=== PATIENT | male | born 1985 | race Caucasian/White ===

== ENCOUNTER 2020-06-29 13:42 | Emergency (ER) | payer OTHER ==
[~2020-06-29] VITALS: Ht 175.3 cm; Wt 79.5 kg
[2020-06-29 14:42] VITALS: BP 115/78
--- NOTE | 2020-06-29 15:13 | RAD ---
RIBS LEFT AND PA CHEST History: Reason: knee in ribs / Spl. Instructions: / History: Pain Technique: PA view the chest and 3 views of the left ribs. Comparison: None. Findings: No consolidation or pleural effusion. No pneumothorax. Normal heart size. No displaced rib fractures. Impression: 1. No acute cardiopulmonary process. No displaced rib fractures. Electronically signed by: Vince Anthony DO (06/29/2020 3:10 PM) [facility]
--- NOTE | 2020-06-29 15:19 | PHYS DOC ---
Adult General Chief Complaint Chief Complaint: RIB PAIN HPI HPI Patient is a 35 year old male who presents with left-sided lower/anterior rib pains after being kneed to his ribs during his hockey practice today. Patient states that approximately 1230 after hockey practice ended in his traditional 4 teammates on their birthday to have all their pads stripped from them they are tested to the center of the eyes and then their dog piled by other teammates. Patient states it was his birthday today and it was his turn. Patient states that one of his teammates accidentally rammed his knee into the patient's ribs causing him pain. Patient states he did not want to come to the hospital however patient states his drove him straight here dropped him off and told him he was going to be seen. Patient rates his pain at a 4/10 pain on a 1-10 pain scale patient states that at its worst it was probably a 7-8/10. Patient denies any shortness of breath or cough. Patient denies visual changes, fevers, chills, nasal congestion, swelling, abdomen pain, nausea, vomiting, diarrhea, or constipation. Patient states that he has not had any problems urinating, denies back pain or pain in his joints. Patient denies any skin rashes, headaches, focal weaknesses, or sensory changes. Patient denies any increased urination or increased thirst. Patient denies any swelling of his glands. Patient denies any homicidal or suicidal ideations, any depressions or anxieties. Patient states he does not have any COVID-19 concerns and does not wish to be tested today. Patient states that his pain does increase when he bends over twists deep breathes or coughs. Review of Systems Review of Systems Constitutional: Denies fever or chills Eyes: Denies change in visual acuity, redness, or eye pain HENT: Denies nasal congestion or sore throat Respiratory: Denies cough or shortness of breath Cardiovascular: No additional information not addressed in HPI GI: Denies abdominal pain, nausea, vomiting, bloody stools or diarrhea : Denies dysuria or hematuria Musculoskeletal: Denies back pain or joint pain, patient complains of left anterior lateral rib pain after being kneed at hockey practice. Integument: Denies rash or skin lesions Neurologic: Denies headache, focal weakness or sensory changes Endocrine: Denies polyuria or polydipsia All other systems were reviewed and found to be within normal limits, except as documented in this note. Current Medications Current Medications Patient states he does not take any prescription medications or [id number] medications. Allergies Allergies Patient denies allergies to medications. Physical Exam Physical Exam Constitutional: Well developed, well nourished, no acute distress, non-toxic appearance. HENT: Normocephalic, atraumatic, bilateral external ears normal, oropharynx moist, no oral exudates, nose normal. Eyes: PERRLA, EOMI, conjunctiva normal, no discharge. Neck: Normal range of motion, no tenderness, supple, no stridor. Cardiovascular:Heart rate regular rhythm, no murmur Lungs & Thorax: Bilateral breath sounds clear to auscultation all lung chang, pain elicited with palpation to left anterior lateral costal cartilage ribs of rib #10, no crepitus noted no bruising noted no deformity noted. No subcu air appreciated. Abdomen: Bowel sounds normal, soft, no tenderness, no masses, no pulsatile masses. Skin: Warm, dry, no erythema, no rash. Back: No tenderness, no CVA tenderness. Extremities: No tenderness, no cyanosis, no clubbing, ROM intact, no edema. Neurologic: Alert and oriented X 3, normal motor function, normal sensory function, no focal deficits noted. Psychologic: Affect normal, judgement normal, mood normal. EKG EKG [] Radiology/Procedures Radiology/Procedures REASON: knee in ribs PROCEDURE: RIBS LEFT AND PA CHEST RIBS LEFT AND PA CHEST History: Reason: knee in ribs / Spl. Instructions: / History: Pain Technique: PA view the chest and 3 views of the left ribs. Comparison: None. Findings: No consolidation or pleural effusion. No pneumothorax. Normal heart size. No displaced rib fractures. Impression: 1. No acute cardiopulmonary process. No displaced rib fractures. Electronically signed by: Jairo Anthony DO (06/29/2020 3:10 PM) [facility] DICTATED AND SIGNED BY: JAIRO ANTHONY DO DATE: 06/29/20 1510 CC: SANTOS KAY DO; [facility]; PCP,UNKNOWN ~ Heart Score Risk Factors: Risk Factors: DM, Current or recent (<one month) smoker, HTN, HLP, family history of CAD, obesity. Risk Scores: Risk Factors: DM, Current or recent (<one month) smoker, HTN, HLP, family history of CAD, obesity. Course & Med Decision Making Course & Med Decision Making Pertinent Labs and Imaging studies reviewed. (See chart for details) 35-year-old male presents emergency department after a pain using accident at his hockey practice where one of his teammates kneed him in the left ribs area. Physical examination was negative for subcu air, a chest x-ray was performed and house radiologist read chest x-ray as no acute process no fracture noted. Wet read with ED attending Dr. Kay noted no hemothorax, no pneumothorax, no hemopneumothorax. Discussed physical findings with patient this is most likely musculoskeletal contusion related to his hazing accident. Patient was giving 60 mg Toradol IM along with a 10 mg Flexeril along with ice packs placed for ED nursing staff. Upon reexamination patient states his pain was decreasing. Patient will be sent home with a prescription for 600 mg Motrin along with 10 mg Flexeril. Patient is to use ice packs 30 minutes on 30 minutes off over the next 2 days while awake. Patient gave verbal understanding of DC home instructions, prescription instructions, return to ER concerns, patient had no further questions or concerns, patient discharged home without incident. Dragon Disclaimer Dragon Disclaimer This electronic medical record was generated, in whole or in part, using a voice recognition dictation system. Departure Departure: Impression: Primary Impression: Rib contusion Additional Impression: Rib pain on left side Disposition: ID HOME SELF CARE/HOMELESS Condition: STABLE Referrals: PCP,UNKNOWN (PCP) Patient Instructions: Rib Contusion Additional Instructions: The incident today on a hockey ice resulted in a contused rib or bruised rib, please use ice packs to the sore rib area 30 minutes on and 30 minutes off over the next 2 days while you are awake. I have prescribed you ibuprofen for an anti-inflammatory and Flexeril for a muscle relaxer. Please return to the emergency department for worsening of symptoms, or other concerns. Scripts Ibuprofen (Ibu) 600 Mg Tablet 600 MG PO PRN Q8HRS PRN for PAIN, #30 TAB 0 Refills Prov: DARYL COX PROPOSAL REP 06/29/20 Cyclobenzaprine Hcl (CYCLOBENZAPRINE HCL) 10 Mg Tablet 1 TAB PO TID PRN for MUSCLE RELAXER, #30 TAB 0 Refills Prov: DARYL COX APRN 06/29/20 Problem Qualifiers Primary Impression: Rib contusion Encounter type: initial encounter Laterality: left Qualified Codes: S20.212A - Contusion of left front wall of thorax, initial encounter DARYL COX APRN Jun 29, 2020 15:19
[2020-06-29] MEDS ORDERED: IBUP-571 PO (15:45)
[2020-06-29] MEDS ORDERED: KETOROLAC 60 MG/2 ML VIAL. IM ONE (15:45)
[2020-06-29] MEDS ORDERED: CYCLOBENZAPRINE 10 MG TABLET. PO ONE (15:45)
[2020-06-29] MEDS ORDERED: CYCL-331 PO (15:45)
[2020-06-30] MEDS ORDERED: HYDR-3165 PO (19:09)
== END 2020-06-29 16:11 | disposition home or self-care (01) ==
LOC: ER 13:42
DX: S20.212A Contusion of left front wall of thorax, initial encounter (principal); X50.1XXA Overexertion from prolonged static or awkward postures, initial encounter; Y93.22 Activity, ice hockey; Y92.89 Other specified places as the place of occurrence of the external cause; Y99.8 Other external cause status
CPT/HCPCS: 71101; 96372; 99283; J1885

== ENCOUNTER 2020-06-30 16:33 | Emergency (ER) | payer OTHER ==
[~2020-06-30] VITALS: Ht 175.3 cm; Wt 85.1 kg
[2020-06-30 16:33] VITALS: BP 127/84
[~2020-06-30 16:33] MED LIST: CYCL-331 PO; IBUP-571 PO
[2020-06-30] MEDS ORDERED: HYDR-3165 PO (19:09)
--- NOTE | 2020-06-30 19:09 | PHYS DOC ---
Past History Past Medical History: No Pertinent History (DARYL COX APRN) Past Surgical History: Appendectomy (DARYL COX APRN) Alcohol Use: None (DARYL COX APRN) Adult General Chief Complaint Chief Complaint: RIB PAIN HPI HPI Patient is a 35 year old male who presents with complaints of pain to the left anterior ribs area that requires stronger pain medication. Patient was seen here yesterday for blunt trauma to the ribs and evaluated, patient states that he was offered stronger pain medication which he refused at that time, patient states that he would like to get a prescription for stronger pain medicine because he is unable to tolerate this pain at home when he tries to sleep at night. Patient denies any other symptoms other than the pain where he was need in the chest during his hockey practice. Patient denies any increased shortness of breath or chest pain. Patient denies any abdominal pains, nausea, vomiting, or diarrhea. Patient denies seeing any blood in his stools. Patient states that he is just here for stronger pain medications today. Patient denies any other health ailments, aches, pains, or concerns. Patient states that he does not wish to be tested for the COVID-19 virus and does not have any symptoms of the COVID-19 virus. (DARYL COX APRN) Review of Systems Review of Systems Constitutional: Denies fever or chills Eyes: Denies change in visual acuity, redness, or eye pain HENT: Denies nasal congestion or sore throat Respiratory: Denies cough or shortness of breath Cardiovascular: Complains of pain to the left anterior lateral ribs area that increases with movement, deep breathing, cough, after his blunt trauma injury that happened yesterday. GI: Denies abdominal pain, nausea, vomiting, bloody stools or diarrhea : Denies dysuria or hematuria Musculoskeletal: Denies back pain or joint pain, complains of pain to the left anterior lateral ribs area that increases with movement, deep breathing, cough, after his blunt trauma injury that happened yesterday at hockey practice. Integument: Denies rash or skin lesions Neurologic: Denies headache, focal weakness or sensory changes Endocrine: Denies polyuria or polydipsia All other systems were reviewed and found to be within normal limits, except as documented in this note. (DARYL COX APRN) Current Medications Current Medications Current Medications Medications (Trade) Dose Ordered Sig/Ninfa Start Time Stop Time Status Last Admin Dose Admin Acetaminophen/ Hydrocodone Bitart (Lortab 5/325) 2 tab 1X ONCE 06/30/20 19:15 06/30/20 19:16 06/30/20 19:03 2 TAB (DARYL COX APRN) Allergies Allergies Allergies Coded Allergies Type Severity Reaction Last Updated Verified No Known Drug Allergies 06/29/20 No (DARYL COX APRN) Physical Exam Physical Exam Constitutional: Well developed, well nourished, no acute distress, non-toxic appearance. HENT: Normocephalic, atraumatic, bilateral external ears normal, oropharynx moist, no oral exudates, nose normal. Eyes: PERRLA, EOMI, conjunctiva normal, no discharge. Neck: Normal range of motion, no tenderness, supple, no stridor. Cardiovascular:Heart rate regular rhythm, no murmur Lungs & Thorax: Bilateral breath sounds clear to auscultation Abdomen: Bowel sounds normal, soft, no tenderness, no masses, no pulsatile masses. Skin: Warm, dry, no erythema, no rash. Back: No tenderness, no CVA tenderness. Extremities: No tenderness, no cyanosis, no clubbing, ROM intact, no edema. Neurologic: Alert and oriented X 3, normal motor function, normal sensory function, no focal deficits noted. Psychologic: Affect normal, judgement normal, mood normal. Musculoskeletal: Pain elicited to palpation at costal cartilage left anterior lateral ribs near 10th rib. No bruising noted, no bruising of the abdomen noted, no abnormalities or masses noted with palpation evaluation of spleen and liver. (DARYL COX APRN) Current Patient Data Vital Signs Vital Signs Date Time Temp Pulse Resp B/P (MAP) Pulse Ox O2 Delivery O2 Flow Rate FiO2 06/30/20 19:03 16 06/30/20 16:33 97.9 88 127/84 (98) 98 Room Air (DARYL COX APRN) EKG EKG [] (DARYL COX APRN) Radiology/Procedures Radiology/Procedures [] (DARYL COX APRN) Heart Score Risk Factors: Risk Factors: DM, Current or recent (<one month) smoker, HTN, HLP, family history of CAD, obesity. Risk Scores: Risk Factors: DM, Current or recent (<one month) smoker, HTN, HLP, family history of CAD, obesity. (DARYL COX APRN) Course & Med Decision Making Course & Med Decision Making Pertinent Labs and Imaging studies reviewed. (See chart for details) 35-year-old patient returns to the emergency department after being evaluated yesterday for blunt trauma to the left anterior lateral ribs area, and x-ray was performed and was negative for acute fracture, patient states that he was offered stronger pain medicines but refused, patient states that he was unable to sleep comfortably and wished to have a prescription for stronger pain medicines so that he could tolerate his pain. Physical examination of his pain elicited pain to the left anterior lateral costo cartilage near 10th rib, no de formity was noted, no crepitus was noted, no subcu air was appreciated, evaluation of spleen and liver along with palpation did not reveal any abnormalities and not concerning for spleen or liver injury or laceration. Patient denied abdominal pain and/or symptoms associated with spleen and liver injury. Patient reports his pain is pinpoint at the area where he was kneed, and only increases with cough, deep breathing, movement, and palpation. This is most likely a contused rib, will give patient [place] prescription 15 count of 5/325 mg. Discussed findings with patient, home prescription use, continue to use his other pain medicine prescriptions, rest, use of ice, patient gave verbal understanding of these instructions, had no further questions or concerns, patient discharged home without incident. (DARYL COX APRN) Course & Med Decision Making I have reviewed the PA/DIGITIZER's note and plan of care. I was available for consultation as needed during the patient's visit in the emergency department. I agree with the clinical impression, plan, and disposition. No flail chest, reviewed prior imaging which was unremarkable, patient well-appearing and nontoxic and safe for discharge home with continued supportive care advised (CHRISTIANA ROSE DO) Dragon Disclaimer Dragon Disclaimer This electronic medical record was generated, in whole or in part, using a voice recognition dictation system. (DARYL COX APRN) Departure Departure: Impression: Primary Impression: Rib pain Disposition: 01 DC HOME SELF CARE/HOMELESS Condition: STABLE Referrals: ROXANA PAUL DO, MPH (PCP) Patient Instructions: Rib Contusion Additional Instructions: Take medications as prescribed, use ice to the sore areas, continue your other prescription medications as directed, return to the emergency department for worsening symptoms or further concerns. Scripts Hydrocodone Bit/Acetaminophen (NORCO 5-325 TABLET) 1 Each Tablet 1-2 TAB PO Q4-6HRS for pain, #15 TAB 0 Refills Prov: DARYL COX APRN 06/30/20 DARYL COX APRN Jun 30, 2020 19:09 CHRISTIANA ROSE DO Jul 01, 2020 06:27
[2020-06-30] MEDS ORDERED: HYDROcodone/APAP 5/325MG 1 TAB TABLET PO ONE (19:15)
== END 2020-06-30 19:14 | disposition home or self-care (01) ==
LOC: ER 16:33
DX: R07.81 Pleurodynia (principal)
CPT/HCPCS: 99283

== ENCOUNTER 2021-03-21 22:15 | Emergency (ER) | payer OTHER ==
[~2021-03-21] VITALS: Ht 175.3 cm; Wt 84.3 kg
[~2021-03-21 22:15] MED LIST changes: +HYDR-3165 PO
--- NOTE | 2021-03-21 23:24 | RAD ---
Exam: Left ankle 3 views. Left tibia and fibula 2 views INDICATION: o'clock medial distal tib-fib TECHNIQUE: Frontal, lateral and oblique views of the left ankle. Frontal and lateral views of the lef t tibia and fibula Comparisons: None FINDINGS: Ankle: Bone mineralization is normal. No acute or healed fractures. Soft tissues are unremarkable. Joint spa rosenda are well-maintained. Tib-fib: Bone mineralization is normal. No acute or healed fractures. Soft tissues are unremarkable. Joint spa rosenda are well-maintained. IMPRESSION: No acute osseous abnormality of the left ankle or left tibia fibula. Electronically signed by: Yasmin Stevens MD (03/21/2021 11:22 PM) [facility]
--- NOTE | 2021-03-21 23:31 | PHYS DOC ---
Past History Past Medical History: No Pertinent History Past Surgical History: Appendectomy Alcohol Use: None General Adult EDM: Chief Complaint: ANKLE PROBLEM HPI: HPI: 35-year-old male presents with left anterior ankle pain. The patient was playing hockey in a pocket him in the gomes. He has bruising. It hurts quite a bit so he was concerned about fracture. He denies any other injuries or concerns at this time. Review of Systems: Review of Systems: Constitutional: Denies fever or chills Eyes: Denies change in visual acuity HENT: Denies nasal congestion or sore throat Respiratory: Denies cough or shortness of breath Cardiovascular: Denies chest pain or edema GI: Denies abdominal pain, nausea, vomiting, bloody stools or diarrhea : Denies dysuria Musculoskeletal: Anterior left gomes pain Integument: Denies rash Neurologic: Denies headache, focal weakness or sensory changes Endocrine: Denies polyuria or polydipsia Lymphatic: Denies swollen glands Psychiatric: Denies depression or anxiety Allergies: Allergies: Allergies Coded Allergies Type Severity Reaction Last Updated Verified No Known Drug Allergies 06/29/20 No Physical Exam: PE: Constitutional: Well developed, well nourished, no acute distress, non-toxic appearance. [] HENT: Normocephalic, atraumatic, bilateral external ears normal, oropharynx moist, no oral exudates, nose normal. [] Eyes: PERRLA, EOMI, conjunctiva normal, no discharge. [] Neck: Normal range of motion, no tenderness, supple, no stridor. [] Cardiovascular:Heart rate regular rhythm, no murmur [] Lungs & Thorax: Bilateral breath sounds clear to auscultation [] Abdomen: Bowel sounds normal, soft, no tenderness, no masses, no pulsatile masses. [] Skin: Warm, dry, no erythema, no rash. [] Back: No tenderness, no CVA tenderness. [] Extremities: No tenderness, no cyanosis, no clubbing, ROM intact, no edema. [] Neurologic: Alert and oriented X 3, normal motor function, normal sensory function, no focal deficits noted. [] Psychologic: Affect normal, judgement normal, mood normal. [] EKG: EKG: [] Radiology/Procedures: Radiology/Procedures: [] Impressions: Exam: Left ankle 3 views. Left tibia and fibula 2 views INDICATION: o'clock medial distal tib-fib TECHNIQUE: Frontal, lateral and oblique views of the left ankle. Frontal and lateral views of the left tibia and fibula Comparisons: None FINDINGS: Ankle: Bone mineralization is normal. No acute or healed fractures. Soft tissues are unremarkable. Joint spaces are well-maintained. Tib-fib: Bone mineralization is normal. No acute or healed fractures. Soft tissues are unremarkable. Joint spaces are well-maintained. IMPRESSION: No acute osseous abnormality of the left ankle or left tibia fibula. Electronically signed by: Yasmin Clarke MD (03/21/2021 11:22 PM) [facility] DICTATED AND SIGNED BY: YASMIN CLARKE MD DATE: 03/21/212316 CC: SANTOS KAY DO; EMERGENCY,DEPARTMENT; ROXANA PAUL DO, MPH ~MTH0 0 Heart Score: C/O Chest Pain: N/A Risk Factors: Risk Factors: DM, Current or recent (<one month) smoker, HTN, HLP, family history of CAD, obesity. Risk Scores: Score 0 - 3: 2.5% MACE over next 6 weeks - Discharge Home Score 4 - 6: 20.3% MACE over next 6 weeks - Admit for Clinical Observation Score 7 - 10: 72.7% MACE over next 6 weeks - Early Invasive Strategies Course & Med Decision Making: Course & Med Decision Making Pertinent Labs and Imaging studies reviewed. (See chart for details) The patient's x-rays are negative for fracture. He does have a contusion. I believe it is safe for him to continue to play as he has a game tomorrow. He is stable for discharge at this time. [] Dragon Disclaimer: Dragjaleesa Disclaimer: This electronic medical record was generated, in whole or in part, using a voice recognition dictation system. Departure Departure: Impression: Primary Impression: Contusion of lower leg, right Qualified Codes: S80.11XA - Contusion of right lower leg, initial encounter Disposition: HOME / SELF CARE / HOMELESS Condition: STABLE Referrals: ROXANA PAUL DO, MPH (PCP) Patient Instructions: Contusion, [id number] SANTOS KAY DO Mar 21, 2021 23:31
[2021-03-21 23:55] VITALS: BP 111/69
== END 2021-03-21 23:55 | disposition home or self-care (01) ==
LOC: ER 22:15
DX: S80.12XA Contusion of left lower leg, initial encounter (principal); X58.XXXA Exposure to other specified factors, initial encounter; Y93.22 Activity, ice hockey; Y92.89 Other specified places as the place of occurrence of the external cause; Y99.8 Other external cause status
CPT/HCPCS: 73590; 73610; 99284

== ENCOUNTER 2021-05-17 21:05 | Emergency (ER) | payer OTHER ==
[~2021-05-17] VITALS: Ht 175.3 cm; Wt 81.0 kg
--- NOTE | 2021-05-17 21:30 | PHYS DOC ---
Past History Past Medical History: No Pertinent History Past Surgical History: Appendectomy Alcohol Use: None General Adult HPI: HPI: ". I was leaving a Hockey game.... and accident stepped in a hole.. messed my Rt. knee...".. " It is really painful to walk on...." Patient is a 35 year old male who presents with above hx and compaints of Rt. knee injury. Patient reports he stepped into a hole causing him to trip and fall. Patient states he twisted and contused his right knee in the fall. He also contused left knee. Patient denies any other injury in the fall. Patient's primary area of pain is right knee. Distal neurovascular is equal to left foot. Patient is able do straight leg lift. Does have marked pain on anterior draw and in the collateral medial and lateral ligaments. Has contusion. Pain with palpation and flexion. Patient normally follows at [facility] for care. No recent travel. No specific ill contacts. No recent overseas assignments. No previous injury to right knee. Review of Systems: Review of Systems: Constitutional: Denies fever or chills Eyes: Denies change in visual acuity HENT: Denies nasal congestion or sore throat Respiratory: Denies cough or shortness of breath Cardiovascular: Denies chest pain or edema GI: Denies abdominal pain, nausea, vomiting, bloody stools or diarrhea : Denies dysuria Musculoskeletal: Complains of right knee sprain and contusion Integument: Denies rash Neurologic: Denies headache, focal weakness or sensory changes Endocrine: Denies polyuria or polydipsia Lymphatic: Denies swollen glands Psychiatric: Denies depression or anxiety Family History: Family History: Noncontributory to presentation Current Medications: Current Meds: See nursing for home meds Allergies: Allergies: Allergies Coded Allergies Type Severity Reaction Last Updated Verified No Known Drug Allergies 06/29/20 No Physical Exam: PE: Constitutional: Well developed, well nourished, moderate acute distress, non- toxic appearance. [] HENT: Normocephalic, atraumatic, bilateral external ears normal, oropharynx moist, no oral exudates, nose normal. [] Eyes: PERRLA, EOMI, conjunctiva normal, no discharge. [] Neck: Normal range of motion, no tenderness, supple, no stridor. [] Cardiovascular:Heart rate regular rhythm, no murmur [] Lungs & Thorax: Bilateral breath sounds apex on auscultation [] Abdomen: Bowel sounds normal, soft, no tenderness, no masses, no pulsatile masses. [] Skin: Warm, dry, no erythema, no rash. [] Back: No tenderness, no CVA tenderness. [] Extremities: No tenderness, no cyanosis, no clubbing, ROM intact, no edema. Except findings in right knee as per HPI Neurologic: Alert and oriented X 3, normal motor function, normal sensory function, no focal deficits noted. [] Psychologic: Affect anxious, judgement normal, mood normal. [] EKG: EKG: [] Radiology/Procedures: Radiology/Procedures: [][place] [id number] IMAGING REPORT Signed PATIENT: VAZQUEZ DIAZ ACCOUNT: [id number] : 1985 LOCATION: ER AGE: 35 SEX: M EXAM STATUS: REG ER ORD. PHYSICIAN: DARIUS PECK MD REASON: TRAUMA, TRIPPED IN A POTHOLE PROCEDURE: KNEE RIGHT 4V Exam: Right knee 4 views INDICATION: Trauma TECHNIQUE: Frontal, lateral, oblique and sunrise views of the right knee Comparisons: None FINDINGS: Bone mineralization is normal. No acute or healed fractures. Soft tissues are unremarkable. Joint spaces are well-maintained. IMPRESSION: No acute osseous abnormality of the right knee Electronically signed by: Frankie Clarke MD (05/17/2021 10:55 PM) [facility] DICTATED AND SIGNED BY: FRANKIE CLARKE MD DATE: 05/17/21 [id number] CC: DARIUS PECK MD; PCP,UNKNOWN ~MTH0 0 Heart Score: C/O Chest Pain: N/A Risk Factors: Risk Factors: DM, Current or recent (<one month) smoker, HTN, HLP, family history of CAD, obesity. Risk Scores: Score 0 - 3: 2.5% MACE over next 6 weeks - Discharge Home Score 4 - 6: 20.3% MACE over next 6 weeks - Admit for Clinical Observation Score 7 - 10: 72.7% MACE over next 6 weeks - Early Invasive Strategies Course & Med Decision Making: Course & Med Decision Making Pertinent Labs and Imaging studies reviewed. (See chart for details) This no vascular intact after application of splint Ice, splint, elevation, rest, and use crutches. Follow-up primary care. Take Tylenol and ibuprofen for pain. Consider repeat x-ray in 2 weeks if no improvement. Consider follow-up with Ortho at [facility] or [facility] Ortho at [phone] Impression: 1. Trip and fall 3. Right knee sprain strain and contusion [] Dragon Disclaimer: Dragon Disclaimer: This electronic medical record was generated, in whole or in part, using a voice recognition dictation system. Departure Departure: Referrals: PCP,UNKNOWN (PCP) Dragon Disclaimer This chart was dictated in whole or in part using Voice Recognition software in a busy, high-work load, and often noisy Emergency Department environment. It may contain unintended and wholly unrecognized errors or omissions. DARIUS PECK MD May 17, 2021 21:30
[2021-05-17] MEDS ORDERED: MORPHINE SULFATE 10 MG/ML SYRINGE. SQ ONE (22:00)
--- NOTE | 2021-05-17 22:57 | RAD ---
Exam: Right knee 4 views INDICATION: Trauma TECHNIQUE: Frontal, lateral, oblique and sunrise views of the right knee Comparisons: None FINDINGS: Bone mineralization is normal. No acute or healed fractures. Soft tissues are unremarkable. Joint spa [place] are well-maintained. IMPRESSION: No acute osseous abnormality of the right knee Electronically signed by: Yasmin Stevens MD (05/17/2021 10:55 PM) [facility]
[2021-05-17 23:33] VITALS: BP 118/80
== END 2021-05-17 23:33 | disposition home or self-care (01) ==
LOC: ER 21:05
DX: S83.91XA Sprain of unspecified site of right knee, initial encounter (principal); W01.0XXA Fall on same level from slipping, tripping and stumbling without subsequent striking against object, initial encounter; Y93.89 Activity, other specified; Y92.89 Other specified places as the place of occurrence of the external cause; Y99.8 Other external cause status
CPT/HCPCS: 29505; 73564; 96372; 99283; J2270

== ENCOUNTER 2021-06-25 09:48 | Emergency (ER) | payer OTHER ==
[~2021-06-25] VITALS: Ht 175.3 cm; Wt 81.0 kg
[~2021-06-25 09:48] MED LIST changes: -CYCL-331 PO; +CYCL10TA19 PO
--- NOTE | 2021-06-25 09:51 | PHYS DOC ---
Past History Past Medical History: No Pertinent History Past Surgical History: Appendectomy Alcohol Use: None Adult General HPI HPI Patient is a 35-year-old male, status post 1 week out from ACL repair who presents to the emergency department with a chief complaint of increased pain and swelling in the area, 7 out of 10, sharp in nature with no radiation at the request of his orthopedic surgeon. Denies any other recent traumas, travel, illnesses, fevers, chest pain, shortness of breath, abdominal pain, nausea, vomiting. Review of Systems Review of Systems Review of systems otherwise unremarkable except noted in HPI Allergies Allergies Allergies Coded Allergies Type Severity Reaction Last Updated Verified No Known Drug Allergies 06/29/20 No Physical Exam Physical Exam Constitutional: Well developed, well nourished, no acute distress, non-toxic appearance. [] HENT: Normocephalic, atraumatic, bilateral external ears normal, oropharynx moist, no oral exudates, nose normal. [] Eyes: conjunctiva normal, no discharge. [] Neck: Normal range of motion, no tenderness, supple, no stridor. [] Cardiovascular:Heart rate regular rhythm, no murmur [] Lungs & Thorax: Bilateral breath sounds clear to auscultation [] Abdomen: soft, no tenderness, no masses, no pulsatile masses. [] Skin: Warm, dry, no erythema, no rash. [] Back: No tenderness, no CVA tenderness. [] Extremities: No tenderness, no cyanosis, no clubbing, ROM intact, no edema. [] Neurologic: Alert and oriented X 3, normal motor function, normal sensory function, no focal deficits noted. [] Psychologic: Affect normal, judgement normal, mood normal. [] EKG EKG [] Radiology/Procedures Radiology/Procedures []am Date: 06/25/2021 10:04 AM US DPLX VENOUS EXTREMITY LOWER RT Indication: Reason: RLE SWELLING AND PAIN, S/P ACL REPAIR / Spl. Instructions: / History: . INDICATION: Lower extremity pain/swelling TECHNIQUE: Grayscale sonogram, color Doppler, and spectral Doppler waveform analysis of the lower extremity venous system was performed on the right. FINDINGS: The right common femoral, superficial femoral, central greater saphenous, popliteal, posterior tibial and peroneal veins are compressible and demonstrate normal color Doppler flow and normal spontaneous phasic waveforms or normal response to augmentation. IMPRESSION: No evidence of deep venous thrombosis in the right lower extremity. Electronically signed by: Adalberto Garcia MD (06/25/2021 10:25 AM) [facility] Heart Score C/O Chest Pain: No Risk Factors: Risk Factors: DM, Current or recent (<one month) smoker, HTN, HLP, family history of CAD, obesity. Risk Scores: Risk Factors: DM, Current or recent (<one month) smoker, HTN, HLP, family history of CAD, obesity. Course & Med Decision Making Course & Med Decision Making Patient is a 35-year-old male, status post 1 week ACL repair presents with postop pain and swelling at the request of his orthopedic surgeon Vital signs not concerning. Physical exam noted above. Patient denies need for pain medicine at this time. Ultrasound of the right lower extremity with no signs of DVT. Discussed all findings with patient. Advised to follow-up with his orthopedic surgeon to update on ED visit and set up a follow-up. Called patient's orthopedic surgeon as well to update them. Gave patient strict return precautions to the ED. Patient grateful, verbalized understanding and agree with plan of discharge. Dragon Disclaimer Dragon Disclaimer This electronic medical record was generated, in whole or in part, using a voice recognition dictation system. Departure Departure: Impression: Primary Impression: Postoperative pain of right knee Disposition: 01 HOME / SELF CARE / HOMELESS Condition: IMPROVED Referrals: CHRISTI RICHARDSON (PCP) Additional Instructions: Thank you for coming into the emergency department tonight and allowing us to take care of you. Please read the attached information carefully to go back over some of the things we discussed. Scripts Hydrocodone Bit/Acetaminophen (HYDROCODONE-APAP 5-325 ) 1 Each Tablet 1 TAB PO TID PRN for PAIN for 5 Days, #15 TAB 0 Refills Prov: CAMILA REGALADO MD 06/25/21 CAMILA REGALADO MD Jun 25, 2021 09:51
[2021-06-25 09:55] VITALS: BP 137/75
--- NOTE | 2021-06-25 10:27 | RAD ---
Exam Date: 06/25/2021 10:04 AM US DPLX VENOUS EXTREMITY LOWER RT Indication: Reason: RLE SWELLING AND PAIN, S/P ACL REPAIR / Spl. Instructions: / History: . INDICATION: Lower extremity pain/swelling TECHNIQUE: Grayscale sonogram, color Doppler, and spectral Doppler waveform analysis of the lower ex tremity venous system was performed on the right. FINDINGS: The right common femoral, superficial femoral, central greater saphenous, popliteal, posterior tibial and peroneal veins are compressible and demonstrate normal color Doppler flow and normal spontaneous phasic waveforms or normal response to augmentation. IMPRESSION: No evidence of deep venous thrombosis in the right lower extremity. Electronically signed by: Adalberto Garcia MD (06/25/2021 10:25 AM) [facility]
[2021-06-25] MEDS ORDERED: HYDR-2155 PO (10:59)
== END 2021-06-25 11:10 | disposition home or self-care (01) ==
LOC: ER 09:48
DX: G89.18 Other acute postprocedural pain (principal); M25.561 Pain in right knee; M79.661 Pain in right lower leg
CPT/HCPCS: 93971; 99284-25